=== PATIENT | female | born 1990 | race Two or more races ===

== ENCOUNTER 2016-07-13 06:07 | Day surgery (SDC) | payer BC ==
--- NOTE | 2016-07-12 22:26 | HP ---
ADMIT DATE: DATE OF OPERATION: 07/13/2016 DIAGNOSIS: Renal failure with side branches off of a left forearm fistula, which is fairly deep. May need translocation. HISTORY OF PRESENT ILLNESS: This is a 25-year-old female with renal failure who had a Solis fistula placed in early May. She has several large side branches and the fistula is rather deep. PAST MEDICAL HISTORY, MEDICATIONS: See reconciliation list. ALLERGIES: None. ILLNESSES: Chronic renal failure, not put on dialysis yet and hypertension. PHYSICAL EXAMINATION: GENERAL: Pleasant female, well developed, no acute distress. CARDIOVASCULAR: Regular heart rate. LUNGS: Nonlabored respirations. Good thrill over her left fistula, but there several large side branches clearly seen. The vein is rather deep. IMPRESSION: Side branches of left forearm fistula. Maybe too deep to develop. PLAN: Ligation of side branches and possible translocation. The nature of that procedure and the risks were explained and she is agreeable to proceed. RICKY GAMEZ MD DR: KAMILA/mo JOB#: [id number] / [id number]
[~2016-07-13] VITALS: Ht 167.6 cm; Wt 93.0 kg
[~2016-07-13 06:07] MED LIST: AMLO10TA2 PO; ASPI81TA9 PO; CEFAZOLIN 2GM PREMIX 50 ML IV ONE; CEFAZOLIN SODIUM 1 GM in IV NORMAL SALINE 500ML BAG 500 ML IRR ONE; CLON0.1T PO; HEPARIN S0DIUM 5,000 UNIT in IV NORMAL SALINE 500ML BAG 500 ML IRR ONE; HYDR-963 PO; METO-269 PO; PARI1CAP PO; SODI650T PO; TRIA1CAP3 PO
[2016-07-13] MEDS ORDERED: IV NORMAL SALINE 1000ML BAG 1,000 ML IV ONE (06:30)
[2016-07-13 06:47] LABS: NEG OBC UR NEG; POS OBC UR POS
[2016-07-13] MEDS ORDERED: ONDANSETRON PF 4 MG/2 ML VIAL. ONE (06:53)
[2016-07-13] MEDS ORDERED: LIDOCAINE 2% 100 MG/5 ML DISP.SYRIN. ONE (06:53)
[2016-07-13] MEDS ORDERED: PROPOFOL 20 ML IV ONE ×2 (06:53→07:46)
[2016-07-13] MEDS ORDERED: FAMOTIDINE 20 MG/2 ML VIAL ONE (06:53)
[2016-07-13] MEDS ORDERED: FENTANYL PF 100 MCG/2 ML VIAL. ONE ×2 (06:55→07:46)
[2016-07-13] MEDS ORDERED: MIDAZOLAM HCL 2 MG/2 ML VIAL. ONE (06:56)
[2016-07-13] MEDS ORDERED: HYDROMORPHONE 2 MG/ML VIAL. IV PRN (07:00)
[2016-07-13] MEDS ORDERED: IV RINGERS,LACTATED 1000ML 1,000 ML IV SCH (07:00)
[2016-07-13] MEDS ORDERED: FENTANYL PF 100 MCG/2 ML VIAL. IV PRN (07:00)
[2016-07-13] MEDS ORDERED: LIDOCAINE 1% 1 ML SYRINGE. ID PRN (07:00)
[2016-07-13] MEDS ORDERED: ONDANSETRON PF 4 MG/2 ML VIAL. IV PRN (07:00)
[2016-07-13] MEDS ORDERED: PROCHLORPERAZINE 10 MG/2 ML VIAL. IV PRN (07:00)
[2016-07-13 07:04] LABS: BASO # 0.1 x10^3/uL (0.0-0.2); BASO % 0 % (0-3); EOS % 6 % (0-3); HEMATOCRIT 35.9 % (36.0-47.0); HEMOGLOBIN 11.5 g/dL (12.0-15.5); LYMPH # 2.5 x10^3/uL (1.0-4.8); LYMPH % 18 % (24-48); MEAN CORPUSCULAR HEMOGLOBIN 30 pg (25-35); MEAN CORPUSCULAR HGB CONC 32 g/dL (31-37); MEAN CORPUSCULAR VOLUME 94 fL (79-100); MONO % 6 % (0-9); NEUT % 70 % (31-73); PLATELET COUNT 383 x10^3/uL (140-400); RED BLOOD COUNT 3.82 x10^6/uL (3.50-5.40); RED CELL DISTRIBUTION WIDTH 15.1 % (11.5-14.5); WHITE BLOOD COUNT 13.7 x10^3/uL (4.0-11.0)
[2016-07-13 07:07] LABS: CALCIUM 8.9 mg/dL (8.5-10.1); CREATININE 6.6 mg/dL (0.6-1.0); GFR 7.6; POTASSIUM 4.2 mmol/L (3.5-5.1)
[2016-07-13] MEDS ORDERED: LIDOCAINE 1% PF 30 ML VIAL. ONE (07:08)
[2016-07-13] MEDS ORDERED: SURGICEL FIBRILLAR 1X2 EACH. ONE (07:08)
[2016-07-13 07:14] LABS: INR 1.1 (0.8-1.1); PROTHROMBIN TIME PATIENT 13.5 SEC (11.7-14.0)
[2016-07-13] MEDS ORDERED: DEXAMETHASONE SOD PHOS 20 MG/5 ML VIAL. ONE (07:29)
[2016-07-13] MEDS ORDERED: EPHEDRINE PF IN SALINE 50 MG/5 ML DISP.SYRIN. IV ONE (07:59)
[2016-07-13] MEDS ORDERED: HEPARIN for IV BOLUS 10,000 UNIT/10 ML VIAL. ONE (08:00)
[2016-07-13] MEDS ORDERED: DESFLURANE 61 TO 120 MINUTES IH ONE (08:30)
--- NOTE | 2016-07-13 08:39 | DISCH ---
DISCHARGE INSTRUCTIONS Condition on Discharge Condition on Discharge: Stable Activity After Discharge Activity Instructions for Disc: Activity as tolerated Bathing Instructions: Shower-keep dressing dry (may remove dressing in 2 days, then may shower) Diet after Discharge Diet after Discharge: Renal Dialysis Wound Incision Care Wound/Incision Care: Keep wound elevated Contacting the DRKathy after DC Call your doctor for: If your condition worsens Follow-Up Follow up with: Dr. Marsh in 3 weeks LINA BLANC APRN Jul 13, 2016 08:39
--- NOTE | 2016-07-13 08:42 | PDOC ---
BRIEF OPERATIVE NOTE Date: Jul 13, 2016 Pre-Op Diagnosis Renal failure, poorly maturing fistula with large side branches Post-Op Diagnosis same Procedure Performed Left arm arterio-venous fistula revision with side branch ligation and transposition Surgeon Dr. Marsh [place] Lina Blanc Anesthesia Type: General Blood Loss 20cc Specimens Obtained none Findings good bruit post procedure Complications none LINA BLANC APRN Jul 13, 2016 08:42
[2016-07-13] MEDS ORDERED: TRAMADOL 50 MG TABLET. PO PRN (08:45)
[2016-07-13] MEDS: FENTANYL PF 100 MCG/2 ML VIAL. IV PRN ×4 (08:48→09:13)
--- NOTE | 2016-07-13 09:10 | OP ---
DATE OF SURGERY: 07/13/2016 PREOPERATIVE DIAGNOSES: Renal failure, with deep left forearm fistula with side branches. POSTOPERATIVE DIAGNOSES: Renal failure, with deep left forearm fistula with side branches with area of stenosis. OPERATION PERFORMED: Translocation of left forearm arteriovenous fistula with ligation of side branches and revision of stenotic area with a vein patch of the side branch. SURGEON: Dr. Ritesh Marsh. SCOUTS: Julienne Colindres. ANESTHETIC: General. DESCRIPTION OF PROCEDURE: After adequate general endotracheal anesthetic, prepping and draping, an incision was made just above her left wrist incision. The vein was very nice, dissected out, and then continued up. As we got a little higher in the lower third of the forearm, there was a small side branch to the larger more lateral branch and a medial branch. The medial branch was ligated and divided. The lateral branch was dissected out more distally and then ligated and divided and this was clamped. She was given 5000 units of heparin. The vein was then circumferentially dissected out all the way up to the antecubital fossa through one long continuous incision there, and again side branches were ligated between silk ties and Hemoclips. Heparin had circulated 3 minutes. The fistula was clamped proximally and distally. A venotomy was made in the largest part of the vein just before it narrowed down, and this was extended up through that side branch, and then the side branch folded over and used as a patch angioplasty over that area with a running 7-0 Prolene stitch. Just prior to complete closure, forward bleeding was checked, back bleeding was checked. The anastomosis was completed, clamps were released. A couple of additional stitches were needed to control bleeding. Once hemostasis was obtained, the cautery was used to make a pocket subcutaneously in the lateral aspect of the forearm. The vein was then translocated over there, held in place with a running 3-0 Vicryl and 3-0 nylon for the skin. Sterile dressings were applied. The patient tolerated the procedure well. BLOOD LOSS: Less than 15 mL. She had a good bruit at the conclusion of the case. RITESH MARSH MD DR: KAMILA/mo JOB#: [id number] / [id number]
[2016-07-13] MEDS ORDERED: TRAM50TA PO (09:21)
[2016-07-13] MEDS: MORPHINE SULFATE 2 MG/ML DISP.SYRIN. IV PRN ×2 (09:22→09:33)
[2016-07-13 10:00] VITALS: BP 127/75
== END 2016-07-13 10:19 | disposition home or self-care (01) ==
LOC: SURG 06:07
PROVIDERS: ATTEND Specialist
DX: T82.858A Stenosis of other vascular prosthetic devices, implants and grafts, initial encounter (principal); I12.9 Hypertensive chronic kidney disease with stage 1 through stage 4 chronic kidney disease, or unspecified chronic kidney disease; N18.9 Chronic kidney disease, unspecified; E66.9 Obesity, unspecified; Z99.2 Dependence on renal dialysis
CPT/HCPCS: 36415; 36820; 37607; 80048; 81025; 85027; 85610; 85730; C1769; J0690; J0780; J1100; J1170; J2250; J2270; J2405; J2704; J3010; J7040; S0028